=== PATIENT | female | born 2000 | race Caucasian/White ===

== ENCOUNTER 2023-05-06 02:25 | Inpatient (IN) | payer OTHER ==
[2023-05-06 02:46] VITALS: BMI 25.8
[2023-05-06 03:14] LABS: Fetal Membranes Rupture RUPTURE DETECTED (No Rupture)
[2023-05-06] MEDS ORDERED: hydrALAZINE 20 MG/ML VIAL SLOW IVP PRN ×2 (04:11→06:37)
[2023-05-06] MEDS ORDERED: HYDROcodone/Acetaminophen 5/325 mg Tablet PO PRN ×2 (04:11)
[2023-05-06] MEDS ORDERED: Carboprost 250 MCG/ML AMP IM PRN (04:11)
[2023-05-06] MEDS ORDERED: Ibuprofen 800 MG TAB PO PRN (04:11)
[2023-05-06] MEDS ORDERED: Diphenoxylate HCl/Atropine Tablet PO PRN ×2 (04:11)
[2023-05-06] MEDS ORDERED: fentaNYL 50 mcg/mL 1 mL Vial SLOW IVP PRN (04:11)
[2023-05-06] MEDS ORDERED: Promethazine HCl 25 MG/ML VIAL IM PRN ×2 (04:11→04:48)
[2023-05-06] MEDS ORDERED: Misoprostol 200 MCG TAB PR PRN (04:11)
[2023-05-06] MEDS ORDERED: Methylergonovine 0.2 MG/ML VIAL IM PRN (04:11)
[2023-05-06] MEDS ORDERED: Acetaminophen 500 MG TAB PO PRN (04:11)
[2023-05-06] MEDS ORDERED: Lidocaine 1% (PF) 30 ML VIAL SC PRN (04:11)
[2023-05-06] MEDS ORDERED: Tranexamic Acid 1,000 MG/10 ML VIAL IVP PRN (04:11)
[2023-05-06] MEDS ORDERED: Ondansetron PF 4 MG/2 ML Vial IVP PRN ×2 (04:11→04:48)
[2023-05-06] MEDS ORDERED: NS w/ Oxytocin 30 units 500 ML IV SCH ×2 (04:15)
[2023-05-06] MEDS ORDERED: Lactated Ringer's 1,000 ML IV SCH (04:15)
[2023-05-06 04:26] LABS: Hematocrit 39.2 % (34.9-44.5); Hemoglobin 13.4 g/dL (12.0-15.5); Mean Corpuscular HGB CONC 34.2 g/dL (32.0-36.0); Mean Corpuscular Volume 90.7 fl (81.6-98.3); Mean Platelet Volume 12.5 fl (7.4-10.4); Platelet Count 130 10x3/uL (150-450); RBC Distribution Width 12.9 % (11.5-14.5); Red Blood Cell (RBC) Count 4.32 10x6/uL (3.90-5.03); White Blood Cell (WBC) Count 10.4 10x3/uL (3.5-10.5)
[2023-05-06 04:46] LABS: HBSAg Index 0.15 S/CO (0-0.99); Hep B Surf Ag - L&D Non-Reactive S/CO (NonReactive); Syphilis Antibody Nonreactive (Nonreactive); Syphilis Antibody Index 0.02 S/CO (<1.00 Non-Reactive)
[2023-05-06] MEDS ORDERED: Naloxone HCl 0.4 mg/ml Vial IVP PRN ×2 (04:48)
[2023-05-06] MEDS ORDERED: Moisturizing Cream (Eucerin) 113 GM JAR TOP PRN (04:48)
[2023-05-06] MEDS ORDERED: ePHEDrine Sulfate 50 MG/10 ML VIAL SLOW IVP PRN (04:48)
[2023-05-06] MEDS ORDERED: diphenhydrAMINE 50 MG/ML VIAL IVP PRN (04:48)
[2023-05-06] MEDS ORDERED: Lactated Ringer's 500 ML IV PRN (04:48)
[2023-05-06] MEDS ORDERED: Acetaminophen 325 MG TAB PO PRN (04:48)
[2023-05-06] MEDS ORDERED: fentaNYL/Ropivacaine Epidural 100 ML ONE (04:48)
[2023-05-06] MEDS ORDERED: Communication Order-Pharmacy FS SCH (05:00)
[2023-05-06] MEDS ORDERED: fentaNYL 2 mcg/Ropivacaine 0.2% Epidural 100 ML CADD EPIDURAL SCH (05:00)
[2023-05-06] MEDS ORDERED: Lanolin Ointment 7 GM TUBE TOP PRN (06:37)
[2023-05-06] MEDS ORDERED: Benzocaine-Menthol 82.5 ML CAN TOP PRN (06:37)
[2023-05-06] MEDS ORDERED: Preparation H Ointment 28 GM TUBE PR PRN (06:37)
[2023-05-06] MEDS ORDERED: Bisacodyl 10 MG SUPP PR PRN (06:37)
[2023-05-06] MEDS ORDERED: Boostrix 0.5 ML (Tdap) VIAL (>/=7 yrs of age) IM ONE (06:37)
[2023-05-06] MEDS ORDERED: Milk Of Magnesia 30 ML UDCUP PO PRN (06:37)
[2023-05-06] MEDS ORDERED: Bupivacaine 0.25% HCL 30 ML VIAL ONE (08:00)
[2023-05-06] MEDS: Docusate 100 MG CAP PO SCH ×2 (10:43→21:33)
[2023-05-06] MEDS: Prenatal Vitamin 1 TAB PO SCH (10:43)
[2023-05-06] MEDS: Ferrous Sulfate 325 MG TAB PO SCH ×2 (10:43→17:20)
[2023-05-06] MEDS: Ibuprofen 800 MG TAB PO SCH ×2 (14:06→21:33)
[2023-05-07] MEDS ORDERED: traMADol HCl 50 MG TAB PO PRN ×2 (05:00)
[2023-05-07] MEDS: Ibuprofen 800 MG TAB PO SCH ×3 (05:56→21:32)
[2023-05-07] MEDS: Ferrous Sulfate 325 MG TAB PO SCH ×2 (07:53→18:08)
[2023-05-07] MEDS: Docusate 100 MG CAP PO SCH ×2 (07:58→21:32)
[2023-05-07] MEDS: Prenatal Vitamin 1 TAB PO SCH (07:59)
[2023-05-08] MEDS: Ibuprofen 800 MG TAB PO SCH (05:35)
[2023-05-08 07:36] VITALS: BP 113/69; TEMP 98.2
[2023-05-08] MEDS: Ferrous Sulfate 325 MG TAB PO SCH (08:39)
[2023-05-08] MEDS: Prenatal Vitamin 1 TAB PO SCH (08:40)
[2023-05-08] MEDS: Docusate 100 MG CAP PO SCH (08:40)
== END 2023-05-08 12:25 | disposition home or self-care (01) | DRG 807 ==
LOC: CSHLD/OP 02:25 → CSHLD 04:11 → CSHPP 09:09
PROVIDERS: ADMIT Obstetrics & Gynecology; ATTEND Obstetrics & Gynecology
PROC: 10E0XZZ Delivery of Products of Conception, External Approach (ICD-10-PCS; principal; 2023-05-06)
PROC: 0UQG7ZZ Repair Vagina, Via Natural or Artificial Opening (ICD-10-PCS; 2023-05-06)
PROC: 3E033VJ Introduction of Other Hormone into Peripheral Vein, Percutaneous Approach (ICD-10-PCS; 2023-05-06)
DX: O71.4 Obstetric high vaginal laceration alone (principal); Z37.0 Single live birth; Z3A.36 36 weeks gestation of pregnancy
CPT/HCPCS: 36415; 51702; 84112; 85027; 86780; 86850; 86900; 86901; 87340; 99285; J2405; J2590; S0020